=== PATIENT | female | born 1965 | race Caucasian/White ===

== ENCOUNTER 2017-03-21 17:42 | Emergency (ER) | payer MEDICAID, OTHER ==
[~2017-03-21] VITALS: Wt 72.5 kg
[2017-03-21] MEDS ORDERED: ACETAMINOPHEN 500 MG TAB PO STA (19:41)
[2017-03-21] MEDS ORDERED: IBUPROFEN 800 MG TAB PO ONE (20:00)
--- NOTE | 2017-03-21 21:24 | RADRPT ---
PROCEDURE: XR Chest. CLINICAL INDICATION: Cough. TECHNIQUE: Single frontal view of the chest. COMPARISON: None. FINDINGS: Heart size is at upper limits of normal. The patient body habitus and hypoinflated lungs accentuate pulmonary vascular markings. The lungs are clear. No signs of pleural fluid or pneumothorax are seen . The osseous structures and soft tissues are unremarkable. IMPRESSION: No evidence for active cardiopulmonary disease. RPTAT: [facility] Physician Lupe Date Time Electronically viewed and signed by Physician Lupe on 03/21/2017 21:23 RS/
[2017-03-21] MEDS ORDERED: IBUP800T25 PO (21:27)
[2017-03-21] MEDS ORDERED: PROM5SYR2 PO (21:27)
[2017-03-21] MEDS ORDERED: ACET500C5 PO (21:27)
--- NOTE | 2017-03-21 21:59 | ERD ---
ER Documentation Chief Complaint Chief Complaint cough, congestion, sob, bodyaches. theraflu at 4am HPI 51-year-old female complaining of cough, congestion, body aches and shortness of breath 1 day. Denies sick contacts. Has taken TheraFlu for medication. Denies vomiting. Denies pleuritic chest pain. ROS All systems reviewed and are negative except as per history of present illness. Medications Home Meds Active Scripts Promethazine HCl/Codeine (Prometh-Codein 6.25-10 mg/5 ml) 5 Ml Syrup, 5 ML PO QHS, #100 Prov:MARIIA CALDERON PA-C 03/21/17 Acetaminophen* (Tylophen*) 500 Mg Capsule, 1 CAP PO Q6H Y for PAIN AND OR ELEVATED TEMP, #20 CAP Prov:MARIIA CALDERON PA-C 03/21/17 Ibuprofen* (Motrin*) 800 Mg Tab, 800 MG PO Q6, #30 TAB Prov:MARIIA CALDERON PA-C 03/21/17 Allergies Allergies: Coded Allergies: No Known Allergy (Unverified , 03/21/17) PMhx/Soc Medical and Surgical Hx: pt denies Medical Hx History of Surgery: Yes (csection; uterus) Anesthesia Reaction: No Hx Neurological Disorder: No Hx Respiratory Disorders: No Hx Cardiac Disorders: No Hx Psychiatric Problems: No Hx Miscellaneous Medical Probl: No Hx Alcohol Use: No Hx Substance Use: No Hx Tobacco Use: No Smoking Status: Never smoker Physical Exam Vitals Vital Signs Date Time Temp Pulse Resp B/P Pulse Ox O2 Delivery O2 Flow Rate FiO2 03/21/17 17:53 101.1 109 20 120/67 100 Physical Exam GENERAL: The patient is well-appearing, well-nourished, in no acute distress HEENT: Atraumatic. Conjunctivae are pink. Pupils equal, round, and reactive to light. There is no scleral icterus. Tympanic membranes clear bilaterally. Oropharynx clear. No nystagmus or photophobia. NECK: C-spine is soft and supple. There is no meningismus. There is no cervical lymphadenopathy. CHEST: Clear to auscultation bilaterally. There are no rales, wheezes or rhonchi. HEART: Regular rate and rhythm. No murmurs, clicks, rubs or gallops. No S3 or S4. Results 24 hrs Current Medications Medications (Trade) Dose Ordered Sig/Kenisha Route PRN Reason Start Time Stop Time Status Last Admin Dose Admin Acetaminophen (Tylenol Tab) 1,000 mg ONCE STAT PO 03/21/17 19:41 03/21/17 19:42 DC 03/21/17 19:50 Ibuprofen (Motrin) 800 mg ONCE ONCE PO 03/21/17 20:00 03/21/17 20:01 DC 03/21/17 19:49 Procedures/MDM DIAGNOSTIC IMAGING REPORT Patient: SCOT STARR : 1965 Age: 51 Sex: F MR #: [id number] DOS: 03/21/171940 Ordering MD: LUZ CALDERON PA-C Location: REPLACED BY [facility] Room/Bed: PROCEDURE: XR Chest. CLINICAL INDICATION: Cough. TECHNIQUE: Single frontal view of the chest. COMPARISON: None. FINDINGS: Heart size is at upper limits of normal. The patient body habitus and hypoinflated lungs accentuate pulmonary vascular markings. The lungs are clear. No signs of pleural fluid or pneumothorax are seen. The osseous structures and soft tissues are unremarkable. IMPRESSION: No evidence for active cardiopulmonary disease. MDM: 51-year-old female complaining of cough, congestion, fever and body aches. I have low suspicion for pneumonia as patient's chest x-ray is within normal limits. Exam is non-concerning. I have low suspicion for meningitis or sepsis. Patient is nontoxic-appearing and does not have nuchal rigidity on exam. Recent likely has viral URI with fever. I do not feel that antibiotics are indicated at today's visit. Patient will be discharged with medication for supportive treatment. Patient is discharged with strict ER precautions and recommended to return to the ER symptoms change or worsen. Patient is also recommended to follow-up with primary care within 1-2 days. Departure Diagnosis: Primary Impression: Viral illness Additional Impression: Fever Condition: Stable Patient Instructions: Fever Control (Adult) Referrals: COMMUNITY CLINICS YOU HAVE RECEIVED A MEDICAL SCREENING EXAM AND THE RESULTS INDICATE THAT YOU DO NOT HAVE A CONDITION THAT REQUIRES URGENT TREATMENT IN THE EMERGENCY DEPARTMENT. FURTHER EVALUATION AND TREATMENT OF YOUR CONDITION CAN WAIT UNTIL YOU ARE SEEN IN YOUR DOCTORS OFFICE WITHIN THE NEXT 1-2 DAYS. IT IS YOUR RESPONSIBILITY TO MAKE AN APPOINTMENT FOR TONIA-UP CARE. IF YOU HAVE A PRIMARY DOCTOR --you should call your primary doctor and schedule an appointment IF YOU DO NOT HAVE A PRIMARY DOCTOR YOU CAN CALL OUR PHYSICIAN REFERRAL HOTLINE AT IF YOU CAN NOT AFFORD TO SEE A PHYSICIAN YOU CAN CHOSE FROM THE FOLLOWING [facility] CLINICS [facility] [address] [facility] [address] [facility] [address] [facility] [address] [facility]. [facility] [address] [facility]. [facility]. [address] Additional Instructions: FOLLOW UP WITH YOUR PRIMARY CARE PHYSICIAN TOMORROW.Return to this facility if you are not improving as expected. MARIIA CALDERON PA-C Mar 21, 2017 21:59
--- NOTE | 2017-03-21 21:59 | ERD ---
ER Documentation Chief Complaint Chief Complaint cough, congestion, sob, bodyaches. theraflu at 4am HPI 51-year-old female complaining of cough, congestion, body aches and shortness of breath 1 day. Denies sick contacts. Has taken TheraFlu for medication. Denies vomiting. Denies pleuritic chest pain. ROS All systems reviewed and are negative except as per history of present illness. Medications Home Meds Active Scripts Promethazine HCl/Codeine (Prometh-Codein 6.25-10 mg/5 ml) 5 Ml Syrup, 5 ML PO QHS, #100 Prov:MARIIA CALDERON PA-C 03/21/17 Acetaminophen* (Tylophen*) 500 Mg Capsule, 1 CAP PO Q6H Y for PAIN AND OR ELEVATED TEMP, #20 CAP Prov:MARIIA CALDERON PA-C 03/21/17 Ibuprofen* (Motrin*) 800 Mg Tab, 800 MG PO Q6, #30 TAB Prov:MARIIA CALDERON PA-C 03/21/17 Allergies Allergies: Coded Allergies: No Known Allergy (Unverified , 03/21/17) PMhx/Soc Medical and Surgical Hx: pt denies Medical Hx History of Surgery: Yes (csection; uterus) Anesthesia Reaction: No Hx Neurological Disorder: No Hx Respiratory Disorders: No Hx Cardiac Disorders: No Hx Psychiatric Problems: No Hx Miscellaneous Medical Probl: No Hx Alcohol Use: No Hx Substance Use: No Hx Tobacco Use: No Smoking Status: Never smoker Physical Exam Vitals Vital Signs Date Time Temp Pulse Resp B/P Pulse Ox O2 Delivery O2 Flow Rate FiO2 03/21/17 17:53 101.1 109 20 120/67 100 Physical Exam GENERAL: The patient is well-appearing, well-nourished, in no acute distress HEENT: Atraumatic. Conjunctivae are pink. Pupils equal, round, and reactive to light. There is no scleral icterus. Tympanic membranes clear bilaterally. Oropharynx clear. No nystagmus or photophobia. NECK: C-spine is soft and supple. There is no meningismus. There is no cervical lymphadenopathy. CHEST: Clear to auscultation bilaterally. There are no rales, wheezes or rhonchi. HEART: Regular rate and rhythm. No murmurs, clicks, rubs or gallops. No S3 or S4. Results 24 hrs Current Medications Medications (Trade) Dose Ordered Sig/Kenisha Route PRN Reason Start Time Stop Time Status Last Admin Dose Admin Acetaminophen (Tylenol Tab) 1,000 mg ONCE STAT PO 03/21/17 19:41 03/21/17 19:42 DC 03/21/17 19:50 Ibuprofen (Motrin) 800 mg ONCE ONCE PO 03/21/17 20:00 03/21/17 20:01 DC 03/21/17 19:49 Procedures/MDM DIAGNOSTIC IMAGING REPORT Patient: SCOT STARR : 1965 Age: 51 Sex: F MR #: [id number] DOS: 03/21/171940 Ordering MD: LUZ CALDERON PA-C Location: [facility] Room/Bed: PROCEDURE: XR Chest. CLINICAL INDICATION: Cough. TECHNIQUE: Single frontal view of the chest. COMPARISON: None. FINDINGS: Heart size is at upper limits of normal. The patient body habitus and hypoinflated lungs accentuate pulmonary vascular markings. The lungs are clear. No signs of pleural fluid or pneumothorax are seen. The osseous structures and soft tissues are unremarkable. IMPRESSION: No evidence for active cardiopulmonary disease. MDM: 51-year-old female complaining of cough, congestion, fever and body aches. I have low suspicion for pneumonia as patient's chest x-ray is within normal limits. Exam is non-concerning. I have low suspicion for meningitis or sepsis. Patient is nontoxic-appearing and does not have nuchal rigidity on exam. Recent likely has viral URI with fever. I do not feel that antibiotics are indicated at today's visit. Patient will be discharged with medication for supportive treatment. Patient is discharged with strict ER precautions and recommended to return to the ER symptoms change or worsen. Patient is also recommended to follow-up with primary care within 1-2 days. Departure Diagnosis: Primary Impression: Viral illness Additional Impression: Fever Condition: Stable Patient Instructions: Fever Control (Adult) Referrals: COMMUNITY CLINICS YOU HAVE RECEIVED A MEDICAL SCREENING EXAM AND THE RESULTS INDICATE THAT YOU DO NOT HAVE A CONDITION THAT REQUIRES URGENT TREATMENT IN THE EMERGENCY DEPARTMENT. FURTHER EVALUATION AND TREATMENT OF YOUR CONDITION CAN WAIT UNTIL YOU ARE SEEN IN YOUR DOCTORS OFFICE WITHIN THE NEXT 1-2 DAYS. IT IS YOUR RESPONSIBILITY TO MAKE AN APPOINTMENT FOR TONIA-UP CARE. IF YOU HAVE A PRIMARY DOCTOR --you should call your primary doctor and schedule an appointment IF YOU DO NOT HAVE A PRIMARY DOCTOR YOU CAN CALL OUR PHYSICIAN REFERRAL HOTLINE AT IF YOU CAN NOT AFFORD TO SEE A PHYSICIAN YOU CAN CHOSE FROM THE FOLLOWING [facility] CLINICS [facility] [address] [facility] [address] [facility] [address] [facility] [address] [facility] [address] [facility]. [facility]. [address] Additional Instructions: FOLLOW UP WITH YOUR PRIMARY CARE PHYSICIAN TOMORROW.Return to this facility if you are not improving as expected. MARIIA CALDERON PA-C Mar 21, 2017 21:59
--- NOTE | 2017-03-21 21:59 | ERD ---
ER Documentation Chief Complaint Chief Complaint cough, congestion, sob, bodyaches. theraflu at 4am HPI 51-year-old female complaining of cough, congestion, body aches and shortness of breath 1 day. Denies sick contacts. Has taken TheraFlu for medication. Denies vomiting. Denies pleuritic chest pain. ROS All systems reviewed and are negative except as per history of present illness. Medications Home Meds Active Scripts Promethazine HCl/Codeine (Prometh-Codein 6.25-10 mg/5 ml) 5 Ml Syrup, 5 ML PO QHS, #100 Prov:MARIIA CALDERON PA-C 03/21/17 Acetaminophen* (Tylophen*) 500 Mg Capsule, 1 CAP PO Q6H Y for PAIN AND OR ELEVATED TEMP, #20 CAP Prov:MARIIA CALDERON PA-C 03/21/17 Ibuprofen* (Motrin*) 800 Mg Tab, 800 MG PO Q6, #30 TAB Prov:MARIIA CALDERON PA-C 03/21/17 Allergies Allergies: Coded Allergies: No Known Allergy (Unverified , 03/21/17) PMhx/Soc Medical and Surgical Hx: pt denies Medical Hx History of Surgery: Yes (csection; uterus) Anesthesia Reaction: No Hx Neurological Disorder: No Hx Respiratory Disorders: No Hx Cardiac Disorders: No Hx Psychiatric Problems: No Hx Miscellaneous Medical Probl: No Hx Alcohol Use: No Hx Substance Use: No Hx Tobacco Use: No Smoking Status: Never smoker Physical Exam Vitals Vital Signs Date Time Temp Pulse Resp B/P Pulse Ox O2 Delivery O2 Flow Rate FiO2 03/21/17 17:53 101.1 109 20 120/67 100 Physical Exam GENERAL: The patient is well-appearing, well-nourished, in no acute distress HEENT: Atraumatic. Conjunctivae are pink. Pupils equal, round, and reactive to light. There is no scleral icterus. Tympanic membranes clear bilaterally. Oropharynx clear. No nystagmus or photophobia. NECK: C-spine is soft and supple. There is no meningismus. There is no cervical lymphadenopathy. CHEST: Clear to auscultation bilaterally. There are no rales, wheezes or rhonchi. HEART: Regular rate and rhythm. No murmurs, clicks, rubs or gallops. No S3 or S4. Results 24 hrs Current Medications Medications (Trade) Dose Ordered Sig/Kenisha Route PRN Reason Start Time Stop Time Status Last Admin Dose Admin Acetaminophen (Tylenol Tab) 1,000 mg ONCE STAT PO 03/21/17 19:41 03/21/17 19:42 DC 03/21/17 19:50 Ibuprofen (Motrin) 800 mg ONCE ONCE PO 03/21/17 20:00 03/21/17 20:01 DC 03/21/17 19:49 Procedures/MDM DIAGNOSTIC IMAGING REPORT Patient: SCOT STARR : 1965 Age: 51 Sex: F MR #: [id number] DOS: 03/21/171940 Ordering MD: LUZ CALDERON PA-C Location: [facility] Room/Bed: PROCEDURE: XR Chest. CLINICAL INDICATION: Cough. TECHNIQUE: Single frontal view of the chest. COMPARISON: None. FINDINGS: Heart size is at upper limits of normal. The patient body habitus and hypoinflated lungs accentuate pulmonary vascular markings. The lungs are clear. No signs of pleural fluid or pneumothorax are seen. The osseous structures and soft tissues are unremarkable. IMPRESSION: No evidence for active cardiopulmonary disease. MDM: 51-year-old female complaining of cough, congestion, fever and body aches. I have low suspicion for pneumonia as patient's chest x-ray is within normal limits. Exam is non-concerning. I have low suspicion for meningitis or sepsis. Patient is nontoxic-appearing and does not have nuchal rigidity on exam. Recent likely has viral URI with fever. I do not feel that antibiotics are indicated at today's visit. Patient will be discharged with medication for supportive treatment. Patient is discharged with strict ER precautions and recommended to return to the ER symptoms change or worsen. Patient is also recommended to follow-up with primary care within 1-2 days. Departure Diagnosis: Primary Impression: Viral illness Additional Impression: Fever Condition: Stable Patient Instructions: Fever Control (Adult) Referrals: COMMUNITY CLINICS YOU HAVE RECEIVED A MEDICAL SCREENING EXAM AND THE RESULTS INDICATE THAT YOU DO NOT HAVE A CONDITION THAT REQUIRES URGENT TREATMENT IN THE EMERGENCY DEPARTMENT. FURTHER EVALUATION AND TREATMENT OF YOUR CONDITION CAN WAIT UNTIL YOU ARE SEEN IN YOUR DOCTORS OFFICE WITHIN THE NEXT 1-2 DAYS. IT IS YOUR RESPONSIBILITY TO MAKE AN APPOINTMENT FOR TONIA-UP CARE. IF YOU HAVE A PRIMARY DOCTOR --you should call your primary doctor and schedule an appointment IF YOU DO NOT HAVE A PRIMARY DOCTOR YOU CAN CALL OUR PHYSICIAN REFERRAL HOTLINE AT IF YOU CAN NOT AFFORD TO SEE A PHYSICIAN YOU CAN CHOSE FROM THE FOLLOWING [facility] CLINICS [facility] [address] [facility] [address] [facility] [address] [facility] [address] [facility] [address] [facility]. [facility]. [address] Additional Instructions: FOLLOW UP WITH YOUR PRIMARY CARE PHYSICIAN TOMORROW.Return to this facility if you are not improving as expected. MARIIA CALDERON PA-C Mar 21, 2017 21:59
== END 2017-03-21 21:45 | disposition home or self-care (01) ==
LOC: FTE 17:42
DX: B34.9 Viral infection, unspecified (principal)
CPT/HCPCS: 71010; Z7502; Z7610